=== PATIENT | male | born 1930 | race Caucasian/White ===

== ENCOUNTER 2018-11-24 09:56 | Emergency (ER) | payer MEDICARE, OTHER ==
[~2018-11-24] VITALS: Ht 177.8 cm; Wt 81.8 kg
[~2018-11-24 09:56] MED LIST: COR3.125T PO; EZET10TA13; FURO-150 PO; GLIM4TAB79; LINA5TAB4; LUTE20CA PO; MULT1TAB74 PO; PANT40TA4; POTA10TA36 PO
[2018-11-24 10:35] VITALS: BP_DIAS 67
[2018-11-24] MEDS ORDERED: LIDOcaine 1% w/epiNEPHrine 1:200,000 30ml vial IM ONE (10:35)
[2018-11-24] MEDS ORDERED: TETanus/Pertussis (Acell)/Diphther VAC/PF (Tdap-Adult) 0.5ml syringe IM ONE (10:55)
[2018-11-24] MEDS ORDERED: AMOX-101 PO (12:02)
[2018-11-24 12:43] VITALS: BP_SYST 141
== END 2018-11-24 12:48 | disposition home or self-care (01) ==
LOC: ER 09:56
DX: S51.821A Laceration with foreign body of right forearm, initial encounter (principal); E11.9 Type 2 diabetes mellitus without complications; Z95.0 Presence of cardiac pacemaker; Z98.890 Other specified postprocedural states; Z88.2 Allergy status to sulfonamides; Z79.1 Long term (current) use of non-steroidal anti-inflammatories (NSAID); Z79.899 Other long term (current) drug therapy; W17.81XA Fall down embankment (hill), initial encounter; Y93.01 Activity, walking, marching and hiking; Y92.89 Other specified places as the place of occurrence of the external cause; Y99.8 Other external cause status
CPT/HCPCS: 12034; 90471; 90715; 99284; J3490